=== PATIENT | female | born 1935 | race Caucasian/White ===

== ENCOUNTER 2017-10-16 17:00 | Inpatient (IN) ==
[2017-10-16] MEDS ORDERED: IOPAMIDOL 100 ML BOTTLE IV ONE (17:01)
[2017-10-16] MEDS ORDERED: 0.9 % SODIUM CHLORIDE 1,000 ML IV ONE (17:24)
[2017-10-16] MEDS ORDERED: FUROSEMIDE 40 MG/4 ML VIAL IV ONE (17:53)
[2017-10-16] MEDS ORDERED: METOPROLOL TARTRATE 25 MG TABLET PO ONE ×2 (17:58→18:58)
--- NOTE | 2017-10-16 18:07 | XRay Report ---
INDICATION: Dyspnea TECHNIQUE: PA and lateral upright chest x-ray COMPARISON: None FINDINGS:Bilateral pulmonary parenchymal infiltrates with bibasilar predominance. Appearance is consistent with congestive heart failure. There small pleural effusions. Clinical correlation and follow-up radiographs are recommended. Pneumonia is possible, especially at the left lung base. IMPRESSION: 1. Bilateral parenchymal infiltrates consistent with pulmonary edema. 2. Left basilar pneumonia is possible. Clinical correlation follow-up radiographs recommended. Interpreted and Authenticated by: Lester Tejada 10/16/17
[2017-10-16] MEDS ORDERED: IPRATROPIUM/ALBUTEROL 3 ML AMPUL.NEB NEB ONE (18:21)
[2017-10-16 18:23] LABS: Mean Cell Volume 83.5 fL (80.0-100.0); Mean Corpuscular HGB Conc 32.6 g/dL (31.0-36.0); Mean Corpuscular Hemoglobin 27.2 pg (26.0-34.0); Platelet Count 391 K/mcL (140-440); RBC 3.49 M/mcL (4.00-5.20); Red Cell Distribution Width 17.2 % (11.5-14.5)
[2017-10-16] MEDS: METOPROLOL TARTRATE 5 MG/5 ML VIAL IV ONE ×2 (18:29→18:30)
[2017-10-16] MEDS ORDERED: METOPROLOL TARTRATE 50 MG TABLET ONE (18:30)
[2017-10-16] MEDS ORDERED: ONDANSETRON 4 MG/2 ML VIAL IV ONE (18:40)
[2017-10-16 18:48] LABS: Anisocytosis 1+ (NONE SEEN); Lymphocytes % 2 % (15-49); Monocytes % (Manual) 7 % (1-12); Platelet Estimate NORMAL (NORMAL); RBC Morphology ABNORM (NORMAL); Segmented Neutrophils % 91 % (38-78)
[2017-10-16 18:55] LABS: ALT/SGPT 16 U/l (0-40); Albumin/Globulin Ratio 0.9 (1.0-2.3); Alkaline Phosphatase 89 U/L (39-117); Blood Urea Nitrogen 24 mg/dl (8-23)
--- NOTE | 2017-10-16 19:38 | Cat Scan Report ---
ORIGINAL REPORT CLINICAL INFORMATION: Congestive heart failure COMPARISON: Chest x-ray dated 10/16/2017 TECHNIQUE: Axial contrast enhanced images through the chest. Sagittally and coronally reformatted images. MIP reformatted images. 80 mL contrast material injected intravenously. FINDINGS: Bilateral pleural effusions. Lungs are abnormal with peribronchial thickening and an appearance consistent with pulmonary edema. No parenchymal consolidation. There are bilateral pleural effusions. Main pulmonary artery, right pulmonary artery, left pulmonary artery are negative. No pulmonary embolism. No lobar or segmental abnormalities. There is cardiomegaly with four-chamber cardiac enlargement. No pericardial effusion. Mild compression deformity of the T5 vertebral body. Other thoracic vertebral body heights are maintained. No hilar or mediastinal lymphadenopathy. There is mild calcification of the thoracic aorta. Upper abdomen is negative IMPRESSION: 1. Cardiomegaly 2. Bilateral pleural effusions. No pulmonary parenchymal consolidation. Findings are consistent with congestive heart failure. The exam was performed using radiation dose optimization techniques including, but not limited to, automated exposure control, adjustment of the mA and/or kV according to patient size and use of iterative reconstruction technique. ADDENDUM #1 ADDENDUM: There is extensive right axillary adenopathy. There is a 2.5 cm right breast mass. There is a large right axillary mass which measures at least 5 cm in diameter and is incompletely imaged. Interpreted and Authenticated by: Lester Tejada 10/16/17
--- NOTE | 2017-10-16 19:49 | Emergency Department Note ---
SOB HPI - General Chief Complaint: Shortness of Breath/Dyspnea Stated Complaint: Cough Time Seen by Provider: 10/16/17 17:18 Source: patient, family Mode of arrival: ambulatory Limitations: no limitations - History of Present Illness 82-year-old female with a slowly worsening history of cough and crackles and shortness of breath. Her heart rate has been increasing and she is feeling more weak and anxious with the dyspnea. Today the nursing staff at [facility] [place] noted her crackles and advised her to come into the hospital. She does have a history of atrial fibrillation and is on Eliquis. 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 She has a right breast mass that is fungating she has been bandaging because of its weeping. She has refused up to this point to allow doctors to work that up but the family suspects that his breast cancer-again refuses care for this here CODE STATUS is unclear but it does look like she is a full code but does want limited interventions; this will need to be sorted out - Related Data Allergies Allergy/AdvReac Type Severity Reaction Status Date / Time NKDA Allergy Unknown NONE Uncoded 03/01/15 03:52 Review of Systems All systems ED: reviewed and negative except as stated. Past Medical History - Past Medical History Attestation: Yes: The following information was validated with the patient. Medical history: Reports: atrial fibrillation, cancer (Breast mass undefined), DVT - Social History smoking status: Never smoker Physical Exam Some acute distress secondary to dyspnea. Frail appearing elderly female. Normocephalic atraumatic. Conjunctive are clear sclerae nonicteric. No nasal discharge or congestion. Oropharynx is pink and moist. Neck is supple without lymphadenopathy thyromegaly or carotid bruit. Heart is irregularly irregular rhythm difficult to distinguish murmur secondary to tachycardia. Lungs are with rales in all zuniga as well as end expiratory wheezes. She has an occasional nonproductive cough is tight bronchitic. Abdomen is soft nontender nondistended. She is wearing LEIF hose bilaterally for swelling and history of DVT. +2 radial pulse. Alert oriented able to answer questions appropriately. No dysarthria ataxia. Face is symmetrical Limitations: no limitations Course Vital Signs Temperature 98.2 F 10/16/17 17:00 Pulse Rate 146 H 10/16/17 17:00 Respiratory Rate 20 10/16/17 17:00 Blood Pressure 110/74 10/16/17 17:00 Pulse Oximetry (%) 92 10/16/17 17:00 Temperature 98.2 F 10/16/17 17:00 Pulse Rate 67 10/16/17 19:51 Respiratory Rate 27 H 10/16/17 19:51 Blood Pressure 116/84 10/16/17 19:01 Pulse Oximetry (%) 99 10/16/17 19:51 Shortness of Breath/Dyspnea - Lab Data Lab results reviewed: Yes I reviewed the patient's lab results. Result diagrams: 10/16/17 17:25 10/16/17 17:25 Lab Results 10/16/17 10/16/17 10/16/17 Range/Units 17:25 17:25 17:25 WBC 18.5 H (4.5-11.0) K/mcL RBC 3.49 L (4.00-5.20) M/mcL Hgb 9.5 L (12.0-15.0) g/dL Hct 29.2 L (36.0-48.0) % MCV 83.5 (80.0-100.0) fL MCH 27.2 (26.0-34.0) pg MCHC 32.6 (31.0-36.0) g/dL RDW 17.2 H (11.5-14.5) % Plt Count 391 (140-440) K/mcL MPV 7.8 (7.4-10.4) fL Total Counted 100 Seg Neutrophils % 91 H (38-78) % Band Neutrophils % Not Reportable Lymphocytes % 2 L (15-49) % Monocytes % (Manual) 7 (1-12) % Platelet Estimate Normal (NORMAL) RBC Morphology Abnorm A (NORMAL) Polychromasia Few A (NONE SEEN) Anisocytosis 1+ A (NONE SEEN) VBG Lactic Acid 2.2 (0.5-2.2) mmol/L Sodium 131 L (133-145) mmol/L Potassium 5.1 (3.3-5.1) mmol/L Chloride 94 L (96-108) mmol/L Carbon Dioxide 24 (22-30) mmol/L Anion Gap 13.0 (8-16) BUN 24 H (8-23) mg/dl Creatinine 1.2 H (0.6-1.1) mg/dl GFR Calculation 41 Glucose 135 H (70-105) mg/dL Calcium 8.8 (8.6-10.4) mg/dl Magnesium (1.6-2.5) mg/dL Total Bilirubin 0.2 (0.0-1.0) mg/dL AST 28 (0-37) U/l ALT 16 (0-40) U/l Alkaline Phosphatase 89 (39-117) U/L Troponin T (0-0.03) ng/ml NT-Pro-B Natriuret Pep (0-450) pg/ml Total Protein 6.3 (5.9-8.4) gm/dL Albumin 3.0 L (3.2-5.2) gm/dL Globulin 3.3 (2.2-3.7) gm/dL Albumin/Globulin Ratio 0.9 L (1.0-2.3) Lipase (7-60) U/L 10/16/17 10/16/17 Range/Units 17:25 17:25 WBC (4.5-11.0) K/mcL RBC (4.00-5.20) M/mcL Hgb (12.0-15.0) g/dL Hct (36.0-48.0) % MCV (80.0-100.0) fL MCH (26.0-34.0) pg MCHC (31.0-36.0) g/dL RDW (11.5-14.5) % Plt Count (140-440) K/mcL MPV (7.4-10.4) fL Total Counted Seg Neutrophils % (38-78) % Band Neutrophils % Lymphocytes % (15-49) % Monocytes % (Manual) (1-12) % Platelet Estimate (NORMAL) RBC Morphology (NORMAL) Polychromasia (NONE SEEN) Anisocytosis (NONE SEEN) VBG Lactic Acid (0.5-2.2) mmol/L Sodium (133-145) mmol/L Potassium (3.3-5.1) mmol/L Chloride (96-108) mmol/L Carbon Dioxide (22-30) mmol/L Anion Gap (8-16) BUN (8-23) mg/dl Creatinine (0.6-1.1) mg/dl GFR Calculation Glucose (70-105) mg/dL Calcium (8.6-10.4) mg/dl Magnesium 2.0 (1.6-2.5) mg/dL Total Bilirubin (0.0-1.0) mg/dL AST (0-37) U/l ALT (0-40) U/l Alkaline Phosphatase (39-117) U/L Troponin T < 0.01 (0-0.03) ng/ml NT-Pro-B Natriuret Pep 09175.0 H (0-450) pg/ml Total Protein (5.9-8.4) gm/dL Albumin (3.2-5.2) gm/dL Globulin (2.2-3.7) gm/dL Albumin/Globulin Ratio (1.0-2.3) Lipase 58 (7-60) U/L - Radiology Data Radiology results reviewed: Yes I reviewed the patient's radiology results. Chest x-ray shows pulmonary edema/effusions. Follow-up CT scan is done which shows significant bilateral effusions consistent with congestive heart failure additionally noted large right-sided breast masses which are incompletely imaged along with lymphadenopathy - EKG Data EKG attestation: Yes I reviewed and interpreted this EKG. EKG results narrative: EKG shows a rate of 138 with atrial flutter Disposition Pt seen by LENS MATCHER/PA only: No Clinical Impression: Atrial fibrillation with rapid ventricular response, Breast mass, right Congestive heart failure Qualifiers: Congestive heart failure type: unspecified Congestive heart failure chronicity : acute Qualified Code(s): I50.9 - Heart failure, unspecified Summary: Initially treated with metoprolol 5 mg IV with oral 25 mg at the same time. Also given some fluids but this was during workup. Once it was established that she was actually in heart failure with pleural effusion she was given some furosemide-she is making good urine. X-ray and CT scan of the chest showed significant effusions and so she will need further diuresis to help clear her lungs. She is given a nebulizer of DuoNeb which additionally helped. Her anxiety subsided somewhat Her heart rate came down into the 120s and so I gave her 1 more dose of metoprolol 25 mg oral. I did discuss her case with Dr. Ibarra the hospitalist who agreed to accept her for further care is inpatient for atrial fibrillation with rapid ventricular response. She has decided she wants to be DNR and she does not want a breast mass workup Disposition: Xfer As Inpt ([facility]) Condition: Serious
[2017-10-16] MEDS ORDERED: ONDANSETRON 4 MG/2 ML VIAL IV PRN (21:06)
[2017-10-16] MEDS ORDERED: NALOXONE HCL 0.4 MG/ML VIAL IV PRN (21:06)
[2017-10-16] MEDS ORDERED: METOPROLOL TARTRATE 5 MG/5 ML VIAL IV PRN (21:13)
--- NOTE | 2017-10-16 21:24 | Internal Med History&Physical ---
Medical - H&P: HPI Patient information: Note initiated : 10/16/17 at 9:18 pm Service Date, if different from initiated Date: [] Patient: Bob Acharya 82 y/o F admitted on 10/16/17 for Cough. Chief Complaint: [] History of present illness: Ms. Acharya is a 82 year old Female with h/o chf, dVt s/p IVC filter, presents to the ER today with complaints of sob x 1 day The patient is a resident of [facility], recently admitted there after being admitted to [facility] nearly a month ago for DVT, the patient has been short of breath and unable to do much since admission to the [place], the patient today was noted to be much more short of breath than usual, with crackles on exam, and therefore was sent to the ER for further evaluation The patient usually does not see physicians and does not take much medications, she was recently diagnosed with DVT and is not on anticoagulation? had IVC filter placed, the patient also has a right sided breast mass which has been increasing in size and she has willfully chosen to ignore it. She does not believe in medicine and seems to prefer holistic choices. The patient did not provide much history, most of the history was provided by the daughter who was at the bed side. The patient denies any other complaints. Initially she wished to be full code but later on understanding that she would likely end on a vent if resusitated she chose to be DNR, she does not wish any aggresive interventions, she has no interest in investigating the breast mass, and is aware that this could be cancerous. Apparently as per the daugther the patient was advised hospice care when she was at [facility], and she declined. All systems: reviewed and no additional remarkable complaints except as stated ( as per HPI restneg.) Review of systems: . Medical - H&P: PMH Medical history: Medical History Congestive heart failure (Acute) Atrial fibrillation with rapid ventricular response (Acute) Breast mass, right (Acute) dvt Surgical history: no major surgery s/p IVC filter Family history: reviewed and not pertinent Social history: lives in [facility], non smoker, no etoh, no recreational drugs believe in holistic medicine. Medical - H&P: Meds Allergies Allergy/AdvReac Type Severity Reaction Status Date / Time No Known Drug Allergies Allergy Unverified 10/16/17 21:23 Medical - H&P: Exam - Constitutional Vitals: Temp Pulse Resp BP Pulse Ox 98.2 F 144 H 28 H 116/84 99 10/16/17 17:00 10/16/17 20:33 10/16/17 20:33 10/16/17 19:01 10/16/17 20:33 Exam: GENERAL: The patient is a well-developed, well-nourished in no apparent distress. Is alert and oriented x3. VITAL SIGNS: Reviewed and as noted elsewhere. HEENT: Head is normocephalic and atraumatic. Extraocular muscles are intact. Pupils are equal, round, and reactive to light. Nares appeared normal. Mouth appears any without lesions. Mucous membranes are moist. NECK: Normal to inspection, Supple, No lymphadenopathy or thyromegaly. LUNGS: Air entry equal on both sides,yemi dimished up to mid lungs, yemi crackles noted, no wheezing on exam. not in resp distress, no accessory muscle use, speaking full sentences. HEART: Tachycardic rate and rhythm normal, S1 and S2 heard, no Gallop, S3 or Rub Noted, No Gross murmur heard. ABDOMEN: Soft, nontender, and nondistended. Positive bowel sounds. No hepatosplenomegaly was noted. EXTREMITIES: No cyanosis, clubbing, rash, lesions or edema. NEUROLOGIC: Cranial nerves II through XII are grossly intact. Motor and Sensory System Grossly Intact PSYCHIATRIC: Normal affect, Normal Mood. Appropriate Behavior. SKIN: No ulceration or wounds noted, No jaundice, No rash noted. Medical - H&P: Reslt - Labs CBC & Chem 7: 10/16/17 17:25 10/16/17 17:25 Labs: Short CBC 10/16/17 Range/Units 17:25 WBC 18.5 H (4.5-11.0) K/mcL Hgb 9.5 L (12.0-15.0) g/dL Hct 29.2 L (36.0-48.0) % Plt Count 391 (140-440) K/mcL BMP 10/16/17 17:25 Sodium 131 L Potassium 5.1 Chloride 94 L Carbon Dioxide 24 BUN 24 H Creatinine 1.2 H Glucose 135 H Calcium 8.8 Cardiac Enzymes 10/16/17 Range/Units 17:25 Troponin T < 0.01 (0-0.03) ng/ml Liver Function 10/16/17 Range/Units 17:25 Total Bilirubin 0.2 (0.0-1.0) mg/dL AST 28 (0-37) U/l ALT 16 (0-40) U/l Alkaline Phosphatase 89 (39-117) U/L Albumin 3.0 L (3.2-5.2) gm/dL Medical - H&P: A/P - Narrative A/P Narrative: A/P CHF exacerbation: CXR shows pulm edema with effusion. CT chest is neg for pna, place cooley, and use IV lasix, get echo, try to obtain records from recent discharge from [facility] Af with RVR: IV metoprolol prn for now, start on po metoprolol for rate control DVT : Not on anticoagulation? s/p IVC filter, get old records Breast mass: Pt absolutely not wanting to consider investigation, not even wanting to talk about this. mass was covered with bandage today, will reassess in AM CT shows mass with lymphadenopathy Leucocytosis: Etiolgy? reactive? Check ua and send for urine culture, possible infected breast mass? IV rocephin for now. DVT enoxaparin DNR Cardiac diet Overall poor prognosis, both daugthers at bedside are aware of same.
[2017-10-16 22:04] LABS: Appearance,Urine CLEAR; Bacteria,Urine 0 /hpf (0); Bilirubin,Urine NEG (NEG); Color,Urine YELLOW; Glucose,Urine (UA) NEGATIVE (NEG); Leukocyte Esterase,Urine NEG /uL (NEG); Mucus,Urine FEW /hpf (0); Protein,Urine NEG (NEG); Specific Gravity,Urine 1.011 (1.000-1.035); Urine Amorphous Crystals FEW /hpf (0); Urine Blood NEG mg/dL (<0.03); Urine Hyaline Cast 2 /lpf (0-2); Urine RBC < 1 /hpf (0-1); Urine Squamous Epithelial Cell < 1 /hpf (0-4); Urine WBC 0 /hpf (0-4); Urobilinogen,Urine NEG (NEG)
[2017-10-16] MEDS: cefTRIAXone 2 GM VIAL IV SCH (22:14)
[2017-10-16] MEDS: ENOXAPARIN 40 MG/0.4 ML SYRINGE SQ SCH (22:15)
[2017-10-16] MEDS: HYDROcodone/APAP 5/325MG TABLET PO PRN (23:39)
[2017-10-17] MEDS: IPRATROPIUM/ALBUTEROL 3 ML AMPUL.NEB NEB SCH ×4 (01:04→19:34)
[2017-10-17 04:57] LABS: Basophils # (Auto) 0 K/mcL (0.0-0.3); Basophils % (Auto) 0.1 % (0.0-2.0); Eosinophils # (Auto) 0 K/mcL (0.0-0.7); Eosinophils % (Auto) 0.1 % (0.0-7.0); Granulocytes % (Auto) 88.3 % (38.0-78.0); Lymphocytes # (Auto) 1.2 K/mcL (1.5-4.8); Lymphocytes % (Auto) 7.6 % (15.5-49.0); Mean Cell Volume 83.6 fL (80.0-100.0); Mean Corpuscular HGB Conc 31.7 g/dL (31.0-36.0); Mean Corpuscular Hemoglobin 26.5 pg (26.0-34.0); Monocytes # (Auto) 0.6 K/mcL (0.1-0.9); Monocytes % (Auto) 3.9 % (1.0-12.0); Platelet Count 395 K/mcL (140-440); RBC 3.57 M/mcL (4.00-5.20); Red Cell Distribution Width 16.8 % (11.5-14.5)
[2017-10-17 05:24] LABS: ALT/SGPT 57 U/l (0-40); Albumin 2.7 gm/dL (3.2-5.2); Albumin/Globulin Ratio 0.8 (1.0-2.3); Alkaline Phosphatase 166 U/L (39-117); Bilirubin,Direct < 0.2 mg/dL (0.0-0.3); Blood Urea Nitrogen 25 mg/dl (8-23); Gamma Glutamyl Transpeptidase 47 U/L (5-36); Uric Acid 8.5 mg/dL (2.5-8.0)
--- NOTE | 2017-10-17 12:25 | Internal Med Progress Note ---
Medical - PN: Subj Patient information: Note initiated : 10/17/17 at 12:22 pm Service Date, if different from initiated Date: [] Patient: Bob Acharya 82 y/o F admitted on 10/16/17 for Cough. Chief Complaint: [] Interval history: Ms. Acharya is a 82 year old Female with h/o chf, dVt s/p IVC filter, presents to the ER today with complaints of sob x 1 day The patient is a resident of [facility], recently admitted there after being admitted to [facility] nearly a month ago for DVT, the patient has been short of breath and unable to do much since admission to the [place], the patient today was noted to be much more short of breath than usual, with crackles on exam, and therefore was sent to the ER for further evaluation The patient usually does not see physicians and does not take much medications, she was recently diagnosed with DVT and is not on anticoagulation? had IVC filter placed, the patient also has a right sided breast mass which has been increasing in size and she has willfully chosen to ignore it. She does not believe in medicine and seems to prefer holistic choices. The patient did not provide much history, most of the history was provided by the daughter who was at the bed side. The patient denies any other complaints. Initially she wished to be full code but later on understanding that she would likely end on a vent if resusitated she chose to be DNR, she does not wish any aggresive interventions, she has no interest in investigating the breast mass, and is aware that this could be cancerous. Apparently as per the daugther the patient was advised hospice care when she was at [facility], and she declined. Oct 17 Patient seen examined, sitting by the bedside, noting she is not feeling well later noted she would like to be discharged her labs show persistent wbc, but downward trend clinically she feels better, swelling is down she is still not willing to discuss her care plan plan of care reviewed with family, noted that she has very poor prognosis, both daughters understand same. Pertinent ROS: Denies headache, dizziness Denies chest pain, palpitations Improving cough or shortness of breath Denies abdominal pain, nausea or vomiting. - Constitutional Vitals: Vital Signs Temp Pulse Resp BP Pulse Ox 98.2 F 95 H 20 118/74 98 10/16/17 21:00 10/17/17 07:59 10/17/17 07:59 10/17/17 00:01 10/17/17 07:59 Period Temp Pulse Resp BP Sys/Cohen Pulse Ox Last 24 Hr 98.2 F-98.2 F 62-146 15-38 92-180/44-110 86-99 Intake and Output 10/16/17 10/17/17 10/17/17 21:59 05:59 13:59 Intake Total 1000 / 1000 Output Total 1100 / 1100 Balance 1000 / 1000 -1100 / -1100 Weight 153 lb 11.2 oz Intake & Output: Intake & Output 10/16/17 10/17/17 10/17/17 21:59 05:59 13:59 Intake Total 1000 / 1000 Output Total 1100 / 1100 Balance 1000 / 1000 -1100 / -1100 Weight 153 lb 11.2 oz Intake: IV 1000 / 1000 Sodium Chloride 0.9% 1,000 ml @ 1000 / 1000 Wide Open IV BOLUS ONE Rx#: [id number] Output: Urine Catheter Amount 1100 / 1100 Void Amount 0 / 0 Exam: Constitutional; Afebrile, cooperative, alert, not in distress. Eyes- No icterus, , No periorbital swelling Ears- Ext ear normal, hearing normal to conversation. Neck- Midline trachea, supple Respiratory system: Air Entry equal on both sides, decreased breath sounds jasvir, jasvir basilar craeckles, improved air entry from yesterday. CVS- Rate rhythm irregular, S1,S2 heard, no gallop, no rub. Jasvir edema +++ Abdomen- Soft nontender abdomen, no organomegaly, no tenderness, no guarding or rigidity, NURSING ASS[facility]- AOOx3, moving all extremities, no gross focal deficit noted. right sided chest wound noted, reviewed ,picture on file. Medical - PN: Obj Da - Labs CBC & Chem 7: 10/17/17 04:09 10/17/17 04:09 Labs: Abnormal Lab Results 10/17/17 10/17/17 10/16/17 04:09 04:09 21:44 WBC 15.4 H RBC 3.57 L Hgb 9.5 L Hct 29.9 L RDW 16.8 H Gran % 88.3 H Lymph % (Auto) 7.6 L Gran # 13.6 H Lymph # (Auto) 1.2 L Seg Neutrophils % Lymphocytes % RBC Morphology Polychromasia Anisocytosis Sodium Chloride 94 L BUN 25 H Creatinine 1.3 H Glucose 146 H Uric Acid 8.5 H Phosphorus 5.4 H GGT 47 H AST 102 H ALT 57 H Alkaline Phosphatase 166 H Lactate Dehydrogenase 257 H NT-Pro-B Natriuret Pep Albumin 2.7 L Albumin/Globulin Ratio 0.8 L Amorphous Crystals Few A 10/16/17 10/16/17 10/16/17 17:25 17:25 17:25 WBC 18.5 H RBC 3.49 L Hgb 9.5 L Hct 29.2 L RDW 17.2 H Gran % Lymph % (Auto) Gran # Lymph # (Auto) Seg Neutrophils % 91 H Lymphocytes % 2 L RBC Morphology Abnorm A Polychromasia Few A Anisocytosis 1+ A Sodium 131 L Chloride 94 L BUN 24 H Creatinine 1.2 H Glucose 135 H Uric Acid Phosphorus GGT AST ALT Alkaline Phosphatase Lactate Dehydrogenase NT-Pro-B Natriuret Pep 83192.0 H Albumin 3.0 L Albumin/Globulin Ratio 0.9 L Amorphous Crystals Meds: Medications Acetaminophen (Tylenol) 650 mg PO Q6HP PRN PRN Reason: PAIN/FEVER > 101 Hydrocodone Bitart/Acetaminophen ([place] 5/325mg) 1 tab PO Q4HP PRN PRN Reason: PAIN LEVEL 3-6 Last Admin: 10/16/17 23:39 Dose: 1 tab Albuterol/Ipratropium (Duoneb) 3 ml NEB Q6HRT [facility] Last Admin: 10/17/17 07:53 Dose: 3 ml Ceftriaxone Sodium (Rocephin) 2 gm IV Q24H [facility] Last Admin: 10/16/17 22:14 Dose: 2 gm Enoxaparin Sodium (Lovenox) 40 mg SQ DAILY [facility] Last Admin: 10/16/17 22:15 Dose: 40 mg Furosemide (Lasix) 40 mg IV BIDD [facility] Metoprolol Tartrate (Lopressor) 5 mg IV Q4HP PRN PRN Reason: Tachyarrhythmias Last Admin: 10/17/17 00:10 Dose: 5 mg Naloxone HCl (Narcan) 0.1 mg IV Q2MIN PRN PRN Reason: Opiate Reversal Ondansetron HCl (Zofran) 4 mg IV Q4HP PRN PRN Reason: Nausea And Vomiting Medical - PN: A/P - Time Spent With Patient Total time spent is greater than 50% in coordination of care (as documented) at patient's floor/unit and/or counseling patient: - Narrative A/P Narrative: A/P CHF exacerbation: On IV lasix, bid, did not want cooley, clinically improving, echo pending abnl lft: Get liver usg today Afib with RVR: IV metoprolol prn for now, start on po metoprolol for rate control DVT : Not on anticoagulation? s/p IVC filter, get old records Breast mass: Pt absolutely not wanting to consider investigation, not even wanting to talk about this. did not wish to talk today too. Leucocytosis: Etiolgy? reactive? , possible infected breast mass? IV rocephin for now. DVT enoxaparin DNR Cardiac diet Overall poor prognosis, both daughters at bedside are aware of same. Medical - PN: Qual - VTE Deep Vein Thrombosis/Pulmonary Embolism Present on Admission: No
[2017-10-17] MEDS: ENOXAPARIN 40 MG/0.4 ML SYRINGE SQ SCH (13:41)
[2017-10-17] MEDS: FUROSEMIDE 40 MG/4 ML VIAL IV SCH ×2 (13:41→16:22)
[2017-10-17] MEDS: cefTRIAXone 2 GM VIAL IV SCH (13:42)
--- NOTE | 2017-10-17 15:12 | Ultrasound Report ---
CLINICAL INFORMATION: Abnormal liver function tests TECHNIQUE: Grayscale and color flow Doppler spectral imaging COMPARISON: CT scan chest dated 10/16/2017 FINDINGS: There are small mobile gallstones with acoustic shadowing. Stones measure 10 mm or less in size No gallbladder wall thickening. No pericholecystic fluid. No dilated bile ducts. Common bile duct measures 4 mm. No intrahepatic bile duct dilatation. Liver is negative. Normal homogeneous echotexture. No focal mass. Liver contour is smooth. No ascites. Portal vein is patent but suboptimally evaluated. The patient was unable to hold her breath Pancreas appears slightly echogenic. No detectable mass. There is a moderate right pleural effusion IMPRESSION: 1. Cholelithiasis 2. Right pleural effusion Interpreted and Authenticated by: Lester Tejada 10/17/17
[2017-10-17] MEDS: ACETAMINOPHEN 325 MG TABLET PO PRN (22:12)
[2017-10-17] MEDS: LORazepam 2 MG/ML VIAL IV PRN (22:13)
[2017-10-18] MEDS: IPRATROPIUM/ALBUTEROL 3 ML AMPUL.NEB NEB SCH ×4 (01:25→19:45)
[2017-10-18 05:59] LABS: Basophils # (Auto) 0.1 K/mcL (0.0-0.3); Basophils % (Auto) 0.4 % (0.0-2.0); Eosinophils # (Auto) 0.1 K/mcL (0.0-0.7); Eosinophils % (Auto) 0.6 % (0.0-7.0); Granulocytes % (Auto) 86.7 % (38.0-78.0); Lymphocytes # (Auto) 1.2 K/mcL (1.5-4.8); Lymphocytes % (Auto) 7.4 % (15.5-49.0); Mean Cell Volume 82.6 fL (80.0-100.0); Mean Corpuscular HGB Conc 32.3 g/dL (31.0-36.0); Mean Corpuscular Hemoglobin 26.7 pg (26.0-34.0); Monocytes # (Auto) 0.8 K/mcL (0.1-0.9); Monocytes % (Auto) 4.9 % (1.0-12.0); Platelet Count 345 K/mcL (140-440); RBC 3.47 M/mcL (4.00-5.20); Red Cell Distribution Width 16.8 % (11.5-14.5)
[2017-10-18 06:34] LABS: ALT/SGPT 44 U/l (0-40); Albumin 2.6 gm/dL (3.2-5.2); Albumin/Globulin Ratio 0.8 (1.0-2.3); Alkaline Phosphatase 128 U/L (39-117); Bilirubin,Direct < 0.2 mg/dL (0.0-0.3); Blood Urea Nitrogen 28 mg/dl (8-23); Gamma Glutamyl Transpeptidase 37 U/L (5-36); Uric Acid 9.8 mg/dL (2.5-8.0)
[2017-10-18] MEDS: HYDROcodone/APAP 5/325MG TABLET PO PRN (08:29)
[2017-10-18] MEDS: FUROSEMIDE 40 MG/4 ML VIAL IV SCH ×2 (12:31→16:08)
[2017-10-18] MEDS: APIXABAN 5 MG TABLET PO SCH ×2 (12:32→21:39)
[2017-10-18] MEDS: ENOXAPARIN 40 MG/0.4 ML SYRINGE SQ SCH (12:48)
--- NOTE | 2017-10-18 17:23 | Internal Med Progress Note ---
Medical - PN: Subj Patient information: Note initiated : 10/18/17 at 5:20 pm Service Date, if different from initiated Date: [] Patient: Bob Acharya 82 y/o F admitted on 10/16/17 for Cough/Afib with RVR. Chief Complaint: [] Interval history: Ms. Acharya is a 82 year old Female with h/o chf, dVt s/p IVC filter, presents to the ER today with complaints of sob x 1 day The patient is a resident of [facility], recently admitted there after being admitted to [facility] nearly a month ago for DVT, the patient has been short of breath and unable to do much since admission to the [place], the patient today was noted to be much more short of breath than usual, with crackles on exam, and therefore was sent to the ER for further evaluation The patient usually does not see physicians and does not take much medications, she was recently diagnosed with DVT and is not on anticoagulation? had IVC filter placed, the patient also has a right sided breast mass which has been increasing in size and she has willfully chosen to ignore it. She does not believe in medicine and seems to prefer holistic choices. The patient did not provide much history, most of the history was provided by the daughter who was at the bed side. The patient denies any other complaints. Initially she wished to be full code but later on understanding that she would likely end on a vent if resusitated she chose to be DNR, she does not wish any aggresive interventions, she has no interest in investigating the breast mass, and is aware that this could be cancerous. Apparently as per the daugther the patient was advised hospice care when she was at [facility], and she declined. Oct 17 Patient seen examined, sitting by the bedside, noting she is not feeling well later noted she would like to be discharged her labs show persistent wbc, but downward trend clinically she feels better, swelling is down she is still not willing to discuss her care plan plan of care reviewed with family, noted that she has very poor prognosis, both daughters understand same. Oct 18 Patient seen examined, no acute complaints, sitting in chair this AM reviewed the echo findings with her and her family, she has severe mitral MR, with severe pulm HTN, and would need valve replacement, (Dr Devine noted on his verbal report) patient is not planning on any further intervention, nor does she wish to talk about palliative care She is angry and upset on bring up topic of a breast biopsy the patient discharge summary from [facility] noted, she was seen by Dr Reyes and had declined breast biopsy there too and was offered hospice/ palliative care which she declined. She does not believe in modern medicine and does not trust the judgement of this provider. She wants to discuss this with her doctor, but she will not tell me who her doctor is, (so we could forward records there) Family educated regarding very poor prognosis in light of severe MR, pulm HTN and likely malignant breast Ca. Pertinent ROS: unable as pt does not wish to communicate. - Constitutional Vitals: Vital Signs Temp Pulse Resp BP Pulse Ox 98.6 F 95 H 16 111/66 100 10/18/17 16:24 10/18/17 07:33 10/18/17 16:24 10/18/17 16:26 10/18/17 16:24 Period Temp Pulse Resp BP Sys/Cohne Pulse Ox Last 24 Hr 97.9 F-98.6 F 75-95 16-25 82-161/40-73 90-100 Intake and Output 10/18/17 10/18/17 10/18/17 05:59 13:59 21:59 Intake Total 0 / 0 200 / 200 Output Total 0 / 0 350 / 350 700 / 700 Balance 0 / 0 -150 / -150 -700 / -700 Weight 149 lb 12 oz Patient Weight 10/19/17 05:59 Weight 149 lb 12 oz Intake & Output: Intake & Output 10/18/17 10/18/17 10/18/17 05:59 13:59 21:59 Intake Total 0 / 0 200 / 200 Output Total 0 / 0 350 / 350 700 / 700 Balance 0 / 0 -150 / -150 -700 / -700 Weight 149 lb 12 oz Intake: Oral 0 / 0 200 / 200 Output: Urine Catheter Amount 350 / 350 Void Amount 0 / 0 700 / 700 Exam: Constitutional; Afebrile, cooperative, alert, not in distress. Eyes- No icterus, , No periorbital swelling Ears- Ext ear normal, hearing normal to conversation. Neck- Midline trachea, supple Respiratory system: Air Entry equal on both sides, No crackles on ant exam. CVS- Rate rhythm irregular, S1,S2 heard, no gallop, no rub. [employer]- AOOx3, moving all extremities, no gross focal deficit noted. Medical - PN: Obj Da - Labs CBC & Chem 7: 10/18/17 04:04 10/18/17 04:04 Labs: Abnormal Lab Results 10/18/17 10/18/17 10/17/17 04:04 04:04 04:09 WBC 16.5 H RBC 3.47 L Hgb 9.3 L Hct 28.7 L RDW 16.8 H Gran % 86.7 H Lymph % (Auto) 7.4 L Gran # 14.3 H Lymph # (Auto) 1.2 L Seg Neutrophils % Lymphocytes % RBC Morphology Polychromasia Anisocytosis Sodium Chloride 93 L 94 L BUN 28 H 25 H Creatinine 1.4 H 1.3 H Glucose 146 H Uric Acid 9.8 H 8.5 H Calcium 8.5 L Phosphorus 5.4 H GGT 37 H 47 H AST 55 H 102 H ALT 44 H 57 H Alkaline Phosphatase 128 H 166 H Lactate Dehydrogenase 257 H NT-Pro-B Natriuret Pep Total Protein 5.8 L Albumin 2.6 L 2.7 L Albumin/Globulin Ratio 0.8 L 0.8 L Amorphous Crystals 10/17/17 10/16/17 10/16/17 04:09 21:44 17:25 WBC 15.4 H RBC 3.57 L Hgb 9.5 L Hct 29.9 L RDW 16.8 H Gran % 88.3 H Lymph % (Auto) 7.6 L Gran # 13.6 H Lymph # (Auto) 1.2 L Seg Neutrophils % Lymphocytes % RBC Morphology Polychromasia Anisocytosis Sodium Chloride BUN Creatinine Glucose Uric Acid Calcium Phosphorus GGT AST ALT Alkaline Phosphatase Lactate Dehydrogenase NT-Pro-B Natriuret Pep 72729.0 H Total Protein Albumin Albumin/Globulin Ratio Amorphous Crystals Few A 10/16/17 10/16/17 17:25 17:25 WBC 18.5 H RBC 3.49 L Hgb 9.5 L Hct 29.2 L RDW 17.2 H Gran % Lymph % (Auto) Gran # Lymph # (Auto) Seg Neutrophils % 91 H Lymphocytes % 2 L RBC Morphology Abnorm A Polychromasia Few A Anisocytosis 1+ A Sodium 131 L Chloride 94 L BUN 24 H Creatinine 1.2 H Glucose 135 H Uric Acid Calcium Phosphorus GGT AST ALT Alkaline Phosphatase Lactate Dehydrogenase NT-Pro-B Natriuret Pep Total Protein Albumin 3.0 L Albumin/Globulin Ratio 0.9 L Amorphous Crystals Meds: Medications Acetaminophen (Tylenol) 650 mg PO Q6HP PRN PRN Reason: PAIN/FEVER > 101 Last Admin: 10/17/17 22:12 Dose: 650 mg Hydrocodone Bitart/Acetaminophen ([place] 5/325mg) 1 tab PO Q4HP PRN PRN Reason: PAIN LEVEL 3-6 Last Admin: 10/18/17 08:29 Dose: 1 tab Albuterol/Ipratropium (Duoneb) 3 ml NEB Q6HRT [facility] Last Admin: 10/18/17 15:22 Dose: Not Given Furosemide (Lasix) 40 mg IV BIDD [facility] Last Admin: 10/18/17 16:08 Dose: 40 mg Lorazepam (Ativan) 0.5 mg IV Q2HP PRN PRN Reason: ANXIETY/SEDATION Last Admin: 10/17/17 22:13 Dose: 0.5 mg Metoprolol Tartrate (Lopressor) 5 mg IV Q4HP PRN PRN Reason: Tachyarrhythmias Last Admin: 10/17/17 00:10 Dose: 5 mg Naloxone HCl (Narcan) 0.1 mg IV Q2MIN PRN PRN Reason: Opiate Reversal Ondansetron HCl (Zofran) 4 mg IV Q4HP PRN PRN Reason: Nausea And Vomiting Medical - PN: A/P - Time Spent With Patient Total time spent is greater than 50% in coordination of care (as documented) at patient's floor/unit and/or counseling patient: - Narrative A/P Narrative: A/P CHF exacerbation/ SEvere MItral regurgitation/ PUlmonary Hypertension, severe: On oral lasix now, plan to d/c to sNF in AM, if remains sable abnl lft:stable usg, likely secondary to passive congestion. Afib with RVR: po metoprolol for now, doing well, IV prn. DVT : s/p IVC filter, on eliquis Breast mass: Pt absolutely not wanting to consider investigation, not even wanting to talk about this. did not wish to talk today too, got angry and upset if we bring up the topic. Leucocytosis: Etiolgy? reactive? , possible infected breast mass? off antibiocs , she had leucocytosis in [facility] too, no e/o infectino found DVT enoxaparin DNR Cardiac diet Overall poor prognosis, both daughters at bedside are aware of same. Medical - PN: Qual - VTE Deep Vein Thrombosis/Pulmonary Embolism Present on Admission: No
[2017-10-18] MEDS: ACETAMINOPHEN 325 MG TABLET PO PRN (19:54)
[2017-10-19] MEDS: LORazepam 2 MG/ML VIAL IV PRN (00:10)
[2017-10-19] MEDS: IPRATROPIUM/ALBUTEROL 3 ML AMPUL.NEB NEB SCH ×5 (02:00→23:58)
[2017-10-19] MEDS: HYDROcodone/APAP 5/325MG TABLET PO PRN (02:00)
[2017-10-19 05:22] LABS: Basophils # (Auto) 0 K/mcL (0.0-0.3); Basophils % (Auto) 0 % (0.0-2.0); Eosinophils # (Auto) 0.1 K/mcL (0.0-0.7); Eosinophils % (Auto) 0.4 % (0.0-7.0); Granulocytes % (Auto) 86.6 % (38.0-78.0); Lymphocytes # (Auto) 1.2 K/mcL (1.5-4.8); Lymphocytes % (Auto) 7.5 % (15.5-49.0); Mean Cell Volume 83.3 fL (80.0-100.0); Mean Corpuscular HGB Conc 32.2 g/dL (31.0-36.0); Mean Corpuscular Hemoglobin 26.8 pg (26.0-34.0); Monocytes # (Auto) 0.9 K/mcL (0.1-0.9); Monocytes % (Auto) 5.5 % (1.0-12.0); Platelet Count 341 K/mcL (140-440); RBC 3.12 M/mcL (4.00-5.20); Red Cell Distribution Width 17.1 % (11.5-14.5)
[2017-10-19 05:46] LABS: ALT/SGPT 34 U/l (0-40); Albumin 2.5 gm/dL (3.2-5.2); Albumin/Globulin Ratio 0.8 (1.0-2.3); Alkaline Phosphatase 120 U/L (39-117); Bilirubin,Direct < 0.2 mg/dL (0.0-0.3); Blood Urea Nitrogen 27 mg/dl (8-23); Gamma Glutamyl Transpeptidase 34 U/L (5-36); Uric Acid 10.6 mg/dL (2.5-8.0)
[2017-10-19] MEDS: METOPROLOL TARTRATE 25 MG TABLET PO SCH ×2 (09:26→20:52)
[2017-10-19] MEDS: FUROSEMIDE 20 MG TABLET PO SCH ×2 (09:26→17:22)
[2017-10-19] MEDS: APIXABAN 5 MG TABLET PO SCH ×2 (09:26→20:52)
--- NOTE | 2017-10-19 15:20 | Internal Med Progress Note ---
Medical - PN: Subj Patient information: Note initiated : 10/19/17 at 3:19 pm Service Date, if different from initiated Date: [] Patient: Bob Acharya 82 y/o F admitted on 10/16/17 for Cough/Afib with RVR. Chief Complaint: [] Interval history: Ms. Acharya is a 82 year old Female with h/o chf, dVt s/p IVC filter, presents to the ER today with complaints of sob x 1 day The patient is a resident of [facility], recently admitted there after being admitted to [facility] nearly a month ago for DVT, the patient has been short of breath and unable to do much since admission to the [place], the patient today was noted to be much more short of breath than usual, with crackles on exam, and therefore was sent to the ER for further evaluation The patient usually does not see physicians and does not take much medications, she was recently diagnosed with DVT and is not on anticoagulation? had IVC filter placed, the patient also has a right sided breast mass which has been increasing in size and she has willfully chosen to ignore it. She does not believe in medicine and seems to prefer holistic choices. The patient did not provide much history, most of the history was provided by the daughter who was at the bed side. The patient denies any other complaints. Initially she wished to be full code but later on understanding that she would likely end on a vent if resusitated she chose to be DNR, she does not wish any aggresive interventions, she has no interest in investigating the breast mass, and is aware that this could be cancerous. Apparently as per the daugther the patient was advised hospice care when she was at [facility], and she declined. Oct 17 Patient seen examined, sitting by the bedside, noting she is not feeling well later noted she would like to be discharged her labs show persistent wbc, but downward trend clinically she feels better, swelling is down she is still not willing to discuss her care plan plan of care reviewed with family, noted that she has very poor prognosis, both daughters understand same. Oct 18 Patient seen examined, no acute complaints, sitting in chair this AM reviewed the echo findings with her and her family, she has severe mitral MR, with severe pulm HTN, and would need valve replacement, (Dr Devine noted on his verbal report) patient is not planning on any further intervention, nor does she wish to talk about palliative care She is angry and upset on bring up topic of a breast biopsy the patient discharge summary from [facility] noted, she was seen by Dr Reyes and had declined breast biopsy there too and was offered hospice/ palliative care which she declined. She does not believe in modern medicine and does not trust the judgement of this provider. She wants to discuss this with her doctor, but she will not tell me who her doctor is, (so we could forward records there) Family educated regarding very poor prognosis in light of severe MR, pulm HTN and likely malignant breast Ca. Oct 19 patient seen examined, more willing to talk today, denies any complaints wanted to hear out whats wrong with her and what her options are after a prolonged discussion she has agreed for a breast biopsy, which will be done today, and follow up arranged with oncology, likely also cardiology she will be started on metoprolol 12.5mg bid, continue on lasix 20mg bid educated at length today the need to atleast know and talk with [place] [facility] before making any final decsions, pt willing to think over it. Pertinent ROS: Denies headache, dizziness Denies chest pain, palpitations Denies cough or shortness of breath Denies abdominal pain, nausea or vomiting. - Constitutional Vitals: Vital Signs Temp Pulse Resp BP Pulse Ox 99.5 F H 92 H 20 109/53 100 10/19/17 12:01 10/19/17 13:53 10/19/17 13:53 10/19/17 12:01 10/19/17 12:01 Period Temp Pulse Resp BP Sys/Cohen Pulse Ox Last 24 Hr 97.2 F-99.5 F 91-102 16-22 103-128/53-76 87-100 Intake and Output 10/19/17 10/19/17 10/19/17 05:59 13:59 21:59 Intake Total 0 / 0 240 / 240 Output Total 420 / 420 Balance -420 / -420 240 / 240 Intake & Output: Intake & Output 10/19/17 10/19/17 10/19/17 05:59 13:59 21:59 Intake Total 0 / 0 240 / 240 Output Total 420 / 420 Balance -420 / -420 240 / 240 Intake: Oral 0 / 0 240 / 240 Output: Void Amount 420 / 420 Other: Meal Nourishment/Supplement Breakfast Percent of Meal Consumed 100% 25% Feeding Ability Independent Assist with Tray Set Up # Voids 1 Exam: Constitutional; Afebrile, cooperative, alert, not in distress. Eyes- No icterus, , No periorbital swelling Ears- Ext ear normal, hearing normal to conversation. Neck- Midline trachea, supple Respiratory system: Air Entry equal on both sides, improving basilar crackles CVS- Rate rhythm irregular, S1,S2 heard, no gallop, no rub. Abdomen- Soft nontender abdomen, no organomegaly, no tenderness, no guarding or rigidity, LOOM CHECKER- AOOx3, moving all extremities, no gross focal deficit noted. Medical - PN: Obj Da - Labs CBC & Chem 7: 10/19/17 08:25 10/19/17 03:48 Labs: Abnormal Lab Results 10/19/17 10/19/17 10/19/17 14:15 08:25 03:48 WBC RBC Hgb 9.0 L Hct 27.8 L RDW Gran % Lymph % (Auto) Gran # Lymph # (Auto) Seg Neutrophils % Lymphocytes % RBC Morphology Polychromasia Anisocytosis POC PT 19.4 H POC INR 1.7 H Sodium Chloride 92 L Carbon Dioxide 31 H BUN 27 H Creatinine 1.2 H Glucose Uric Acid 10.6 H Calcium 8.3 L Phosphorus GGT AST ALT Alkaline Phosphatase 120 H Lactate Dehydrogenase NT-Pro-B Natriuret Pep Total Protein 5.5 L Albumin 2.5 L Albumin/Globulin Ratio 0.8 L Amorphous Crystals 10/19/17 10/18/17 10/18/17 03:48 04:04 04:04 WBC 16.1 H 16.5 H RBC 3.12 L 3.47 L Hgb 8.4 L 9.3 L Hct 26.0 L 28.7 L RDW 17.1 H 16.8 H Gran % 86.6 H 86.7 H Lymph % (Auto) 7.5 L 7.4 L Gran # 13.9 H 14.3 H Lymph # (Auto) 1.2 L 1.2 L Seg Neutrophils % Lymphocytes % RBC Morphology Polychromasia Anisocytosis POC PT POC INR Sodium Chloride 93 L Carbon Dioxide BUN 28 H Creatinine 1.4 H Glucose Uric Acid 9.8 H Calcium 8.5 L Phosphorus GGT 37 H AST 55 H ALT 44 H Alkaline Phosphatase 128 H Lactate Dehydrogenase NT-Pro-B Natriuret Pep Total Protein 5.8 L Albumin 2.6 L Albumin/Globulin Ratio 0.8 L Amorphous Crystals 10/17/17 10/17/17 10/16/17 04:09 04:09 21:44 WBC 15.4 H RBC 3.57 L Hgb 9.5 L Hct 29.9 L RDW 16.8 H Gran % 88.3 H Lymph % (Auto) 7.6 L Gran # 13.6 H Lymph # (Auto) 1.2 L Seg Neutrophils % Lymphocytes % RBC Morphology Polychromasia Anisocytosis POC PT POC INR Sodium Chloride 94 L Carbon Dioxide BUN 25 H Creatinine 1.3 H Glucose 146 H Uric Acid 8.5 H Calcium Phosphorus 5.4 H GGT 47 H AST 102 H ALT 57 H Alkaline Phosphatase 166 H Lactate Dehydrogenase 257 H NT-Pro-B Natriuret Pep Total Protein Albumin 2.7 L Albumin/Globulin Ratio 0.8 L Amorphous Crystals Few A 10/16/17 10/16/17 10/16/17 17:25 17:25 17:25 WBC 18.5 H RBC 3.49 L Hgb 9.5 L Hct 29.2 L RDW 17.2 H Gran % Lymph % (Auto) Gran # Lymph # (Auto) Seg Neutrophils % 91 H Lymphocytes % 2 L RBC Morphology Abnorm A Polychromasia Few A Anisocytosis 1+ A POC PT POC INR Sodium 131 L Chloride 94 L Carbon Dioxide BUN 24 H Creatinine 1.2 H Glucose 135 H Uric Acid Calcium Phosphorus GGT AST ALT Alkaline Phosphatase Lactate Dehydrogenase NT-Pro-B Natriuret Pep 61545.0 H Total Protein Albumin 3.0 L Albumin/Globulin Ratio 0.9 L Amorphous Crystals Meds: Medications Acetaminophen (Tylenol) 650 mg PO Q6HP PRN PRN Reason: PAIN/FEVER > 101 Last Admin: 10/18/17 19:54 Dose: 650 mg Hydrocodone Bitart/Acetaminophen ([place] 5/325mg) 1 tab PO Q4HP PRN PRN Reason: PAIN LEVEL 3-6 Last Admin: 10/19/17 02:00 Dose: 1 tab Albuterol/Ipratropium (Duoneb) 3 ml NEB Q6HRT [facility] Last Admin: 10/19/17 13:51 Dose: 3 ml Furosemide (Lasix) 20 mg PO BIDD [facility] Last Admin: 10/19/17 09:26 Dose: 20 mg Lorazepam (Ativan) 0.5 mg IV Q2HP PRN PRN Reason: ANXIETY/SEDATION Last Admin: 10/19/17 00:10 Dose: 0.5 mg Metoprolol Tartrate (Lopressor) 5 mg IV Q4HP PRN PRN Reason: Tachyarrhythmias Last Admin: 10/17/17 00:10 Dose: 5 mg Metoprolol Tartrate (Lopressor) 12.5 mg PO BID [facility] Last Admin: 10/19/17 09:26 Dose: 12.5 mg Naloxone HCl (Narcan) 0.1 mg IV Q2MIN PRN PRN Reason: Opiate Reversal Ondansetron HCl (Zofran) 4 mg IV Q4HP PRN PRN Reason: Nausea And Vomiting Medical - PN: A/P - Time Spent With Patient Total time spent is greater than 50% in coordination of care (as documented) at patient's floor/unit and/or counseling patient: - Narrative A/P Narrative: A/P CHF exacerbation/ SEvere MItral regurgitation/ PUlmonary Hypertension, severe: On oral lasix now, plan to d/c to sNF in AM, if remains sable , d/c plan on hold due to breast biopsy. abnl lft:stable usg, likely secondary to passive congestion. Afib with RVR: po metoprolol for now, doing well, IV prn. HR stable. DVT : s/p IVC filter, on eliquis Breast mass: she has agreed for breast biopsy, and thats the reason for her staying another day. as we cannot discharge patient to SNF later in the day. Leucocytosis: Etiolgy? reactive? , possible infected breast mass? off antibiocs , she had leucocytosis in [facility] too, no e/o infectino found she has intermittent low grade temp. DVT enoxaparin DNR Cardiac diet Overall poor prognosis, both daughters at bedside are aware of same. Medical - PN: Qual - VTE Deep Vein Thrombosis/Pulmonary Embolism Present on Admission: No
[2017-10-19] MEDS ORDERED: FUROSEMIDE 20 MG TABLET PO SCH (17:21)
--- NOTE | 2017-10-19 17:27 | Ultrasound Report ---
ORIGINAL REPORT Ultrasound-guided breast biopsy Clinical history: Large mass in the lateral right breast Technique: The procedure and risks including possibly of bleeding, infection and inadequate tissue sampling were explained to the patient. She understood and wished to proceed. The lesion was first sap bpc developer localized. The skin overlying the lesion was marked, prepped and locally anesthetized with 1% lidocaine using a 25-gauge needle. A 14-gauge Achieve core biopsy needle was used to obtain three passes under sonographic guidance. The tissue samples were sent in formalin to pathology and the needle was washed in normal sterile saline between each pass. A microclip was deployed to milo the biopsy site. Post procedure scanning shows no hemorrhage or other complication. Patient tolerated procedure well. IMPRESSION: Percutaneous core biopsy of large mass dominating the lateral aspect of the right breast. Pathology pending. 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 At this point, consider biopsy of one of the large axillary region lesions Interpreted and Authenticated by: Lester Tsang 10/24/17
[2017-10-20 05:54] LABS: Basophils # (Auto) 0 K/mcL (0.0-0.3); Basophils % (Auto) 0.1 % (0.0-2.0); Eosinophils # (Auto) 0 K/mcL (0.0-0.7); Eosinophils % (Auto) 0.1 % (0.0-7.0); Granulocytes % (Auto) 90.6 % (38.0-78.0); Lymphocytes # (Auto) 1.5 K/mcL (1.5-4.8); Lymphocytes % (Auto) 5.2 % (15.5-49.0); Mean Cell Volume 83.7 fL (80.0-100.0); Mean Corpuscular HGB Conc 31.9 g/dL (31.0-36.0); Mean Corpuscular Hemoglobin 26.7 pg (26.0-34.0); Monocytes # (Auto) 1.1 K/mcL (0.1-0.9); Platelet Count 343 K/mcL (140-440); RBC 3.09 M/mcL (4.00-5.20); Red Cell Distribution Width 16.9 % (11.5-14.5)
[2017-10-20 06:02] LABS: ALT/SGPT 26 U/l (0-40); Albumin 2.4 gm/dL (3.2-5.2); Albumin/Globulin Ratio 0.8 (1.0-2.3); Alkaline Phosphatase 108 U/L (39-117); Bilirubin,Direct < 0.2 mg/dL (0.0-0.3); Blood Urea Nitrogen 26 mg/dl (8-23); Gamma Glutamyl Transpeptidase 29 U/L (5-36); Uric Acid 10.7 mg/dL (2.5-8.0)
[2017-10-20] MEDS: IPRATROPIUM/ALBUTEROL 3 ML AMPUL.NEB NEB SCH ×3 (06:55→19:27)
[2017-10-20] MEDS ORDERED: LEVOFLOXACIN 750 MG/150 ML BAG IV ONE (08:04)
[2017-10-20] MEDS: ACETAMINOPHEN 325 MG TABLET PO PRN (08:43)
[2017-10-20] MEDS: METOPROLOL TARTRATE 25 MG TABLET PO SCH ×2 (08:43→21:11)
[2017-10-20] MEDS: FUROSEMIDE 20 MG TABLET PO SCH ×2 (08:43→16:52)
[2017-10-20] MEDS: APIXABAN 5 MG TABLET PO SCH (09:33)
--- NOTE | 2017-10-20 09:33 | XRay Report ---
CLINICAL INFORMATION: Follow pneumonia COMPARISON: 10/16/2017 FINDINGS: Moderate cardiomegaly is unchanged. Mediastinum is unremarkable. Pulmonary vessels are normal on today's study. Small left pleural effusion has decreased slightly. Small left basilar infiltrate has improved. Right lung infiltrate has resolved IMPRESSION: Interval resolution in right lung infiltrate. Improvement in left basilar infiltrate and effusion which are now small. Interpreted and Authenticated by: Lester Tsang 10/20/17
[2017-10-20] MEDS ORDERED: VANCOMYCIN PER PHARMACY IV SCH (09:44)
[2017-10-20] MEDS ORDERED: VANCOMYCIN 1,000 MG in 0.9 % SODIUM CHLORIDE 250 ML IV SCH (10:00)
[2017-10-20] MEDS: PIPERACILLIN SODIUM/TAZOBACTAM 3.375 GM in DEXTROSE 5% IN WATER 50 ML IV SCH ×2 (10:38→14:19)
[2017-10-20] MEDS ORDERED: INSULIN LISPRO 1 UNIT/0.01 ML UNIT SQ SCH (11:30)
--- NOTE | 2017-10-20 14:28 | Internal Med Progress Note ---
Medical - PN: Subj Patient information: Note initiated : 10/20/17 at 2:26 pm Service Date, if different from initiated Date: [] Patient: Bob Acharya 82 y/o F admitted on 10/16/17 for Cough/Afib with RVR. Chief Complaint: [] Interval history: Ms. Acharya is a 82 year old Female with h/o chf, dVt s/p IVC filter, presents to the ER today with complaints of sob x 1 day The patient is a resident of [facility], recently admitted there after being admitted to [facility] nearly a month ago for DVT, the patient has been short of breath and unable to do much since admission to the [place], the patient today was noted to be much more short of breath than usual, with crackles on exam, and therefore was sent to the ER for further evaluation The patient usually does not see physicians and does not take much medications, she was recently diagnosed with DVT and is not on anticoagulation? had IVC filter placed, the patient also has a right sided breast mass which has been increasing in size and she has willfully chosen to ignore it. She does not believe in medicine and seems to prefer holistic choices. The patient did not provide much history, most of the history was provided by the daughter who was at the bed side. The patient denies any other complaints. Initially she wished to be full code but later on understanding that she would likely end on a vent if resusitated she chose to be DNR, she does not wish any aggresive interventions, she has no interest in investigating the breast mass, and is aware that this could be cancerous. Apparently as per the daugther the patient was advised hospice care when she was at [facility], and she declined. Oct 17 Patient seen examined, sitting by the bedside, noting she is not feeling well later noted she would like to be discharged her labs show persistent wbc, but downward trend clinically she feels better, swelling is down she is still not willing to discuss her care plan plan of care reviewed with family, noted that she has very poor prognosis, both daughters understand same. Oct 18 Patient seen examined, no acute complaints, sitting in chair this AM reviewed the echo findings with her and her family, she has severe mitral MR, with severe pulm HTN, and would need valve replacement, (Dr Devine noted on his verbal report) patient is not planning on any further intervention, nor does she wish to talk about palliative care She is angry and upset on bring up topic of a breast biopsy the patient discharge summary from [facility] noted, she was seen by Dr Reyes and had declined breast biopsy there too and was offered hospice/ palliative care which she declined. She does not believe in modern medicine and does not trust the judgement of this provider. She wants to discuss this with her doctor, but she will not tell me who her doctor is, (so we could forward records there) Family educated regarding very poor prognosis in light of severe MR, pulm HTN and likely malignant breast Ca. Oct 19 patient seen examined, more willing to talk today, denies any complaints wanted to hear out whats wrong with her and what her options are after a prolonged discussion she has agreed for a breast biopsy, which will be done today, and follow up arranged with oncology, likely also cardiology she will be started on metoprolol 12.5mg bid, continue on lasix 20mg bid educated at length today the need to atleast know and talk with [place] cardiology before making any final decisions, pt willing to think over it. Oct 20 patient seen examined, was sleepy this AM did not want to talk much The patient has elevated wbc today, also noted that she is feeling much weak today, Her X ray shows improving infiltrates/ chf today, her urine was clean the likely source of the infection is the breast mass, the patient on the USG has loculation/ necrotic mass in the breast which is likely infected. She has had 2 rounds of antibiotics before coming to this hospital, and now again has a recurrent infection. I reviewed the case with Dr Ray, who noted that this is not a surgical case, patient does not wish any other intervention, Reviewed issue with the patients daughter, as patient is not willing to talk much now. Antibiotic course right now will just prolong the patients suffering, without treatment of the malignancy and other issues, patient will likely not survive. They understand same and want time to discuss this with the patient. They agree that patient needs to be comfort care, but not to stop all the treatment at once. Plan to stop eliquis now as there is some bleeding in the malignancy, and pt already has IVC filter, stop antibiotics. continue lasix and beta blockers and pain meds for now Review with case management the optimal disposition, home hospice, vs snf palliative care vs palliative c are here under swing bed status. Pertinent ROS: unable to get much info patient does not feel good. Additional PMFSH (Level 3 Only): Medical History Congestive heart failure (Acute) Atrial fibrillation with rapid ventricular response (Acute) Breast mass, right (Acute) - Constitutional Vitals: Vital Signs Temp Pulse Resp BP Pulse Ox 97.8 F 85 18 112/65 93 10/20/17 11:43 10/20/17 13:22 10/20/17 13:22 10/20/17 11:43 10/20/17 11:43 Period Temp Pulse Resp BP Sys/Cohen Pulse Ox Last 24 Hr 97.8 F-100.7 F 82-110 14-20 105-117/47-67 93-99 Intake and Output 10/20/17 10/20/17 10/20/17 05:59 13:59 21:59 Intake Total 120 / 120 530 / 530 Output Total 350 / 350 275 / 275 Balance -230 / -230 255 / 255 Intake & Output: Intake & Output 10/20/17 10/20/17 10/20/17 05:59 13:59 21:59 Intake Total 120 / 120 530 / 530 Output Total 350 / 350 275 / 275 Balance -230 / -230 255 / 255 Intake: IV 50 / 50 Zosyn 3.375 gm In Dextrose 5% 50 / 50 in Water 50 ml @ 100 mls/hr IV Q6H ON LICENSE OF [facility] Rx#:[id number] Oral 120 / 120 480 / 480 Output: Void Amount 350 / 350 275 / 275 Other: Meal Breakfast Percent of Meal Consumed 100% # Bowel Movements 0 Exam: Constitutional; Afebrile, cooperative, alert, not in distress. Eyes- No icterus, , No periorbital swelling Ears- Ext ear normal, hearing normal to conversation. Neck- Midline trachea, supple Respiratory system: not in resp distress. RIght axillar: large fungating mass with purulent discharge, bleeding from biopsy site. [employer] CODER- AOOx3, moving all extremities, no gross focal deficit noted. Medical - PN: Obj Da - Labs CBC & Chem 7: 10/20/17 04:07 10/20/17 04:07 Labs: Abnormal Lab Results 10/20/17 10/20/17 10/19/17 04:07 04:07 14:15 WBC 28.1 H RBC 3.09 L Hgb 8.3 L Hct 25.8 L RDW 16.9 H Gran % 90.6 H Lymph % (Auto) 5.2 L Gran # 25.5 H Lymph # (Auto) [place] # (Auto) 1.1 H POC PT 19.4 H POC INR 1.7 H Chloride 93 L Carbon Dioxide 34 H BUN 26 H Creatinine Uric Acid 10.7 H Calcium 8.4 L Phosphorus 2.3 L GGT AST ALT Alkaline Phosphatase Total Protein 5.5 L Albumin 2.4 L Albumin/Globulin Ratio 0.8 L 10/19/17 10/19/17 10/19/17 08:25 03:48 03:48 WBC 16.1 H RBC 3.12 L Hgb 9.0 L 8.4 L Hct 27.8 L 26.0 L RDW 17.1 H Gran % 86.6 H Lymph % (Auto) 7.5 L Gran # 13.9 H Lymph # (Auto) 1.2 L [place] # (Auto) POC PT POC INR Chloride 92 L Carbon Dioxide 31 H BUN 27 H Creatinine 1.2 H Uric Acid 10.6 H Calcium 8.3 L Phosphorus GGT AST ALT Alkaline Phosphatase 120 H Total Protein 5.5 L Albumin 2.5 L Albumin/Globulin Ratio 0.8 L 10/18/17 10/18/17 04:04 04:04 WBC 16.5 H RBC 3.47 L Hgb 9.3 L Hct 28.7 L RDW 16.8 H Gran % 86.7 H Lymph % (Auto) 7.4 L Gran # 14.3 H Lymph # (Auto) 1.2 L [place] # (Auto) POC PT POC INR Chloride 93 L Carbon Dioxide BUN 28 H Creatinine 1.4 H Uric Acid 9.8 H Calcium 8.5 L Phosphorus GGT 37 H AST 55 H ALT 44 H Alkaline Phosphatase 128 H Total Protein 5.8 L Albumin 2.6 L Albumin/Globulin Ratio 0.8 L Meds: Medications Acetaminophen (Tylenol) 650 mg PO Q6HP PRN PRN Reason: PAIN/FEVER > 101 Last Admin: 10/20/17 08:43 Dose: 650 mg Hydrocodone Bitart/Acetaminophen ([place] 5/325mg) 1 tab PO Q4HP PRN PRN Reason: PAIN LEVEL 3-6 Last Admin: 10/19/17 02:00 Dose: 1 tab Albuterol/Ipratropium (Duoneb) 3 ml NEB Q6HRT AMISHA Last Admin: 10/20/17 13:21 Dose: 3 ml Furosemide (Lasix) 20 mg PO BIDD ON LICENSE OF [facility] Last Admin: 10/20/17 08:43 Dose: 20 mg Lorazepam (Ativan) 0.5 mg IV Q2HP PRN PRN Reason: ANXIETY/SEDATION Last Admin: 10/19/17 00:10 Dose: 0.5 mg Metoprolol Tartrate (Lopressor) 5 mg IV Q4HP PRN PRN Reason: Tachyarrhythmias Last Admin: 10/17/17 00:10 Dose: 5 mg Metoprolol Tartrate (Lopressor) 12.5 mg PO BID ON LICENSE OF [facility] Last Admin: 10/20/17 08:43 Dose: 12.5 mg Naloxone HCl (Narcan) 0.1 mg IV Q2MIN PRN PRN Reason: Opiate Reversal Ondansetron HCl (Zofran) 4 mg IV Q4HP PRN PRN Reason: Nausea And Vomiting Medical - PN: A/P - Time Spent With Patient Total time spent is greater than 50% in coordination of care (as documented) at patient's floor/unit and/or counseling patient: - Narrative A/P Narrative: A/P CHF exacerbation/ Severe MItral regurgitation/ Pulmonary Hypertension, severe: oral lasix bid, metoprolol 12.5mg bid stable Sepsis: due to infected breast mass, likely breast malignancy, one dose of antibiotics given, but given plan is for palliative care, will d/c same. abnl lft:stable usg, likely secondary to passive congestion. Afib with RVR: po metoprolol for now, doing well, IV prn. HR stable. DVT : s/p IVC filter, d/c eliquis now given palliative care status, Breast mass: she has agreed for breast biopsy, infected breast lesion, DVT has DVT extensive, has an IVC filter in place. DNR Cardiac diet Overall poor prognosis, both daughters at bedside are aware of same. spent > 60 mins reviewing case, coordinating care. counselling family Medical - PN: Qual - VTE Deep Vein Thrombosis/Pulmonary Embolism Present on Admission: No
[2017-10-20] MEDS: HYDROcodone/APAP 5/325MG TABLET PO PRN (21:12)
[2017-10-20] MEDS: LORazepam 2 MG/ML VIAL IV PRN (23:55)
[2017-10-21] MEDS: IPRATROPIUM/ALBUTEROL 3 ML AMPUL.NEB NEB SCH ×4 (02:10→19:33)
[2017-10-21 05:44] LABS: Basophils # (Auto) 0 K/mcL (0.0-0.3); Basophils % (Auto) 0 % (0.0-2.0); Eosinophils # (Auto) 0.2 K/mcL (0.0-0.7); Eosinophils % (Auto) 0.8 % (0.0-7.0); Granulocytes % (Auto) 89.6 % (38.0-78.0); Lymphocytes % (Auto) 6.9 % (15.5-49.0); Mean Cell Volume 84.1 fL (80.0-100.0); Mean Corpuscular HGB Conc 32.5 g/dL (31.0-36.0); Mean Corpuscular Hemoglobin 27.3 pg (26.0-34.0); Monocytes # (Auto) 0.8 K/mcL (0.1-0.9); Monocytes % (Auto) 2.7 % (1.0-12.0); Platelet Count 327 K/mcL (140-440); RBC 3.06 M/mcL (4.00-5.20)
[2017-10-21 06:24] LABS: ALT/SGPT 22 U/l (0-40); Albumin 2.5 gm/dL (3.2-5.2); Albumin/Globulin Ratio 0.9 (1.0-2.3); Alkaline Phosphatase 110 U/L (39-117); Bilirubin,Direct < 0.2 mg/dL (0.0-0.3); Blood Urea Nitrogen 27 mg/dl (8-23); Gamma Glutamyl Transpeptidase 27 U/L (5-36); Uric Acid 9.6 mg/dL (2.5-8.0)
[2017-10-21] MEDS: FUROSEMIDE 20 MG TABLET PO SCH ×2 (08:35→16:32)
[2017-10-21] MEDS: METOPROLOL TARTRATE 25 MG TABLET PO SCH ×2 (08:35→21:50)
[2017-10-21] MEDS ORDERED: VANCOMYCIN PER PHARMACY IV SCH (11:15)
--- NOTE | 2017-10-21 11:33 | Internal Med Progress Note ---
Medical - PN: Subj Patient information: Note initiated : 10/21/17 at 11:13 am Service Date, if different from initiated Date: [] Patient: Bob Acharya 82 y/o F admitted on 10/16/17 for Cough/Afib with RVR. Chief Complaint: [] Interval history: Ms. Acharya is a 82 year old Female with h/o chf, dVt s/p IVC filter, presents to the ER today with complaints of sob x 1 day The patient is a resident of [facility], recently admitted there after being admitted to [facility] nearly a month ago for DVT, the patient has been short of breath and unable to do much since admission to the [place], the patient today was noted to be much more short of breath than usual, with crackles on exam, and therefore was sent to the ER for further evaluation The patient usually does not see physicians and does not take much medications, she was recently diagnosed with DVT and is not on anticoagulation? had IVC filter placed, the patient also has a right sided breast mass which has been increasing in size and she has willfully chosen to ignore it. She does not believe in medicine and seems to prefer holistic choices. The patient did not provide much history, most of the history was provided by the daughter who was at the bed side. The patient denies any other complaints. Initially she wished to be full code but later on understanding that she would likely end on a vent if resusitated she chose to be DNR, she does not wish any aggresive interventions, she has no interest in investigating the breast mass, and is aware that this could be cancerous. Apparently as per the daugther the patient was advised hospice care when she was at [facility], and she declined. Oct 17 Patient seen examined, sitting by the bedside, noting she is not feeling well later noted she would like to be discharged her labs show persistent wbc, but downward trend clinically she feels better, swelling is down she is still not willing to discuss her care plan plan of care reviewed with family, noted that she has very poor prognosis, both daughters understand same. Oct 18 Patient seen examined, no acute complaints, sitting in chair this AM reviewed the echo findings with her and her family, she has severe mitral MR, with severe pulm HTN, and would need valve replacement, (Dr Devine noted on his verbal report) patient is not planning on any further intervention, nor does she wish to talk about palliative care She is angry and upset on bring up topic of a breast biopsy the patient discharge summary from [facility] noted, she was seen by Dr Reyes and had declined breast biopsy there too and was offered hospice/ palliative care which she declined. She does not believe in modern medicine and does not trust the judgement of this provider. She wants to discuss this with her doctor, but she will not tell me who her doctor is, (so we could forward records there) Family educated regarding very poor prognosis in light of severe MR, pulm HTN and likely malignant breast Ca. Oct 19 patient seen examined, more willing to talk today, denies any complaints wanted to hear out whats wrong with her and what her options are after a prolonged discussion she has agreed for a breast biopsy, which will be done today, and follow up arranged with oncology, likely also cardiology she will be started on metoprolol 12.5mg bid, continue on lasix 20mg bid educated at length today the need to atleast know and talk with [place] cardiology before making any final decisions, pt willing to think over it. Oct 20 patient seen examined, was sleepy this AM did not want to talk much The patient has elevated wbc today, also noted that she is feeling much weak today, Her X ray shows improving infiltrates/ chf today, her urine was clean the likely source of the infection is the breast mass, the patient on the USG has loculation/ necrotic mass in the breast which is likely infected. She has had 2 rounds of antibiotics before coming to this hospital, and now again has a recurrent infection. I reviewed the case with Dr Ray, who noted that this is not a surgical case, patient does not wish any other intervention, Reviewed issue with the patients daughter, as patient is not willing to talk much now. Antibiotic course right now will just prolong the patients suffering, without treatment of the malignancy and other issues, patient will likely not survive. They understand same and want time to discuss this with the patient. They agree that patient needs to be comfort care, but not to stop all the treatment at once. Plan to stop eliquis now as there is some bleeding in the malignancy, and pt already has IVC filter, stop antibiotics. continue lasix and beta blockers and pain meds for now Review with case management the optimal disposition, home hospice, vs snf palliative care vs palliative c are here under swing bed status. October 21- patient seen in room along with daughter. No overnight events. Patient alert oriented. Discussed clinical findings including worsening white count and underlying necrotic breast mass likely malignancy. Patient was unclear about a decision at this timeand she wanted to know the available options.. She wasn't aware that antibiotics were discontinued yesterday at the request of the family. I was able to find out from the daughter that they did not inform patient about family's decision to stop antibiotic. I subsequently discussed in depth with patient the options available and she would want to take some time before she makes a final decision. at this time treatment option would include either palliative route in light of likely malignant breast mass and poor surgical candidacy versus waiting for biopsy results and subsequent oncology follow-up for treatment valuation while continuing antibiotic coverage for the necrotic breast mass abscess. her white count is persistently elevated at 28,000. a total of 75 minutes spent on discussions, reviewing labs and imaging - Constitutional Vitals: Vital Signs Temp Pulse Resp BP Pulse Ox 99.4 F H 91 H 16 115/41 94 10/21/17 08:00 10/21/17 08:00 10/21/17 08:00 10/21/17 08:00 10/21/17 08:00 Period Temp Pulse Resp BP Sys/Cohen Pulse Ox Last 24 Hr 97.0 F-99.4 F 82-94 16-20 97-115/41-65 93-99 Intake and Output 10/20/17 10/21/17 10/21/17 21:59 05:59 13:59 Intake Total 200 / 200 180 / 180 Output Total 200 / 200 451 / 451 Balance 0 / 0 180 / 180 -451 / -451 Weight 149 lb Intake & Output: Intake & Output 10/20/17 10/21/17 10/21/17 21:59 05:59 13:59 Intake Total 200 / 200 180 / 180 Output Total 200 / 200 451 / 451 Balance 0 / 0 180 / 180 -451 / -451 Weight 149 lb Intake: Oral 200 / 200 180 / 180 Output: Void Amount 200 / 200 450 / 450 # of times incontinent of urine Other: # Voids 1 General appearance: average body habitus Exam: fatigued and lethargic Anxious Nonlabored breathing Minimal pallor Medical - PN: Obj Da - Labs CBC & Chem 7: 10/21/17 04:06 10/21/17 04:06 Labs: Abnormal Lab Results 10/21/17 10/21/17 10/20/17 04:06 04:06 04:07 WBC 28.4 H RBC 3.06 L Hgb 8.4 L Hct 25.8 L RDW 17.0 H Gran % 89.6 H Lymph % (Auto) 6.9 L Gran # 25.4 H Lymph # (Auto) [place] # (Auto) POC PT POC INR Chloride 93 L 93 L Carbon Dioxide 31 H 34 H BUN 27 H 26 H Creatinine 1.3 H Uric Acid 9.6 H 10.7 H Calcium 8.4 L Phosphorus 2.3 L Alkaline Phosphatase Total Protein 5.4 L 5.5 L Albumin 2.5 L 2.4 L Albumin/Globulin Ratio 0.9 L 0.8 L 10/20/17 10/19/17 10/19/17 04:07 14:15 08:25 WBC 28.1 H RBC 3.09 L Hgb 8.3 L 9.0 L Hct 25.8 L 27.8 L RDW 16.9 H Gran % 90.6 H Lymph % (Auto) 5.2 L Gran # 25.5 H Lymph # (Auto) [place] # (Auto) 1.1 H POC PT 19.4 H POC INR 1.7 H Chloride Carbon Dioxide BUN Creatinine Uric Acid Calcium Phosphorus Alkaline Phosphatase Total Protein Albumin Albumin/Globulin Ratio 10/19/17 10/19/17 03:48 03:48 WBC 16.1 H RBC 3.12 L Hgb 8.4 L Hct 26.0 L RDW 17.1 H Gran % 86.6 H Lymph % (Auto) 7.5 L Gran # 13.9 H Lymph # (Auto) 1.2 L [place] # (Auto) POC PT POC INR Chloride 92 L Carbon Dioxide 31 H BUN 27 H Creatinine 1.2 H Uric Acid 10.6 H Calcium 8.3 L Phosphorus Alkaline Phosphatase 120 H Total Protein 5.5 L Albumin 2.5 L Albumin/Globulin Ratio 0.8 L Meds: Medications Acetaminophen (Tylenol) 650 mg PO Q6HP PRN PRN Reason: PAIN/FEVER > 101 Last Admin: 10/20/17 08:43 Dose: 650 mg Hydrocodone Bitart/Acetaminophen ([place] 5/325mg) 1 tab PO Q4HP PRN PRN Reason: PAIN LEVEL 3-6 Last Admin: 10/20/17 21:12 Dose: 1 tab Albuterol/Ipratropium (Duoneb) 3 ml NEB Q6HRT [facility] Last Admin: 10/21/17 07:44 Dose: 3 ml Furosemide (Lasix) 20 mg PO BIDD [facility] Last Admin: 10/21/17 08:35 Dose: 20 mg Lorazepam (Ativan) 0.5 mg IV Q2HP PRN PRN Reason: ANXIETY/SEDATION Last Admin: 10/20/17 23:55 Dose: 0.5 mg Metoprolol Tartrate (Lopressor) 5 mg IV Q4HP PRN PRN Reason: Tachyarrhythmias Last Admin: 10/17/17 00:10 Dose: 5 mg Metoprolol Tartrate (Lopressor) 12.5 mg PO BID [facility] Last Admin: 10/21/17 08:35 Dose: 12.5 mg Naloxone HCl (Narcan) 0.1 mg IV Q2MIN PRN PRN Reason: Opiate Reversal Ondansetron HCl (Zofran) 4 mg IV Q4HP PRN PRN Reason: Nausea And Vomiting Medical - PN: A/P - Time Spent With Patient Total time spent is greater than 50% in coordination of care (as documented) at patient's floor/unit and/or counseling patient: Greater than 35 minutes - Narrative A/P Narrative: A/P * sepsis by criteria-secondary to necrotic breast mass. Start Zosyn/vancomycin as patient wants full intervention * Necrotic breast mass-evaluated by surgery. Nonsurgical at this time. Patient wants full intervention including oncology follow-up. Biopsy done. Patient will follow with oncology as outpatient once biopsy results available * CHF exacerbation/ Severe MItral regurgitation/ Pulmonary Hypertension, severe : continue lasix bid, metoprolol 12.5mg bid stable * abnormal lft:cholelithiasis without cholecystitis. no evidence of common bile duct occlusion * Afib with RVR: po metoprolol for now, doing well, IV prn. HR stable. * DVT : s/p IVC filter, Eliquis on hold due to local bleeding * Patient wants aggressive interventions and does not want to pursue palliation at this time. Family aware of patient's decision plan * restart antibiotic coverage * awaiting breast biopsy * pre-existing medical condition management as above total time spent in excess of 75 minutes conducting prolonged family conference, reviewing charts labs and imaging Medical - PN: Qual - VTE Deep Vein Thrombosis/Pulmonary Embolism Present on Admission: No
[2017-10-21] MEDS: PIPERACILLIN SODIUM/TAZOBACTAM 2.25 GM in DEXTROSE 5% IN WATER 50 ML IV SCH ×3 (11:43→23:21)
[2017-10-21] MEDS: VANCOMYCIN 1,000 MG in 0.9 % SODIUM CHLORIDE 250 ML IV SCH (12:53)
[2017-10-21] MEDS ORDERED: MELATONIN 5 MG TAB PO SCH (21:00)
[2017-10-21] MEDS: COENZYME Q10 PO SCH (21:51)
[2017-10-21] MEDS: [UNRECOGNIZED DRUG - OTHER] PO SCH (21:52)
[2017-10-21] MEDS: [UNRECOGNIZED DRUG - OTHER] PO SCH (21:52)
[2017-10-21] MEDS: [UNRECOGNIZED DRUG - OTHER] PO SCH (21:52)
[2017-10-22] MEDS: IPRATROPIUM/ALBUTEROL 3 ML AMPUL.NEB NEB SCH ×2 (02:07→07:18)
[2017-10-22 05:44] LABS: Basophils # (Auto) 0 K/mcL (0.0-0.3); Basophils % (Auto) 0.1 % (0.0-2.0); Eosinophils # (Auto) 0.4 K/mcL (0.0-0.7); Eosinophils % (Auto) 2.2 % (0.0-7.0); Granulocytes % (Auto) 82.9 % (38.0-78.0); Lymphocytes # (Auto) 1.5 K/mcL (1.5-4.8); Lymphocytes % (Auto) 8.9 % (15.5-49.0); Mean Cell Volume 83.6 fL (80.0-100.0); Mean Corpuscular HGB Conc 32.2 g/dL (31.0-36.0); Mean Corpuscular Hemoglobin 26.9 pg (26.0-34.0); Monocytes % (Auto) 5.9 % (1.0-12.0); Platelet Count 325 K/mcL (140-440); RBC 3.05 M/mcL (4.00-5.20); Red Cell Distribution Width 17.5 % (11.5-14.5)
[2017-10-22] MEDS: PIPERACILLIN SODIUM/TAZOBACTAM 2.25 GM in DEXTROSE 5% IN WATER 50 ML IV SCH (05:49)
[2017-10-22 06:13] LABS: ALT/SGPT 18 U/l (0-40); Albumin 2.4 gm/dL (3.2-5.2); Albumin/Globulin Ratio 0.8 (1.0-2.3); Alkaline Phosphatase 138 U/L (39-117); Bilirubin,Direct < 0.2 mg/dL (0.0-0.3); Blood Urea Nitrogen 29 mg/dl (8-23); Gamma Glutamyl Transpeptidase 24 U/L (5-36)
[2017-10-22] MEDS ORDERED: [UNRECOGNIZED DRUG - OTHER] PO SCH (09:00)
[2017-10-22] MEDS ORDERED: [UNRECOGNIZED DRUG - OTHER] PO SCH (09:00)
--- NOTE | 2017-10-22 09:04 | Surgical Pathology Report ---
HISTOLOGY SPECIMEN MICROSCOPIC DIAGNOSIS BREAST, RIGHT MASS, BIOPSY: -- BLAND EPITHELIAL AND STROMAL PROLIFERATION WITH ASSOCIATED CALCIFICATIONS, SEE COMMENT. -- BENIGN SKIN AND SUBCUTANEOUS SOFT TISSUE WITH HEMOSIDERIN DEPOSITION, CHOLESTEROL CLEFTS, FOAMY MACROPHAGES, AND FIBRINOUS DEBRIS. -- NO EVIDENCE OF ATYPIA OR MALIGNANCY IDENTIFIED. (:[email or web address]) COMMENT: Sections demonstrate needle core biopsies of breast parenchyma showing proliferation of glands within a background of sclerotic stroma. Immunohistochemical stains confirm myoepithelium lining all glandular elements, and no occult infiltrative process is identified. 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 Clinical and radiographic correlation with appropriate follow-up is recommended. If the pathologic findings do not correlate with the clinical/radiographic impression, repeat biopsy or excision should be considered as clinically indicated. MICROSCOPIC DESCRIPTION For diagnostic purposes, immunohistochemical studies are performed to further evaluate the epithelial and stromal proliferation. All controls react appropriately. Pancytokeratin plus: Appropriately highlights epithelium; negative for occult infiltrative process. CD68: Highlights histiocytes. CD34: Highlights endothelium. SM-MHC, p63: Highlights myoepithelial cell layer around all epithelial elements. Some of the tests reported here may not have been cleared or approved by the U.S. Food and Drug Administration (FDA). However, the FDA has determined that such clearance or approval is not necessary. Pursuant to the requirements of CLIA, this laboratory has established and verified the accuracy and precision of all tests, and additional information about these tests is available upon request. All technical controls are adequate. CLINICAL HISTORY Right breast mass. GROSS DESCRIPTION Received in formalin labeled right breast, are six pate-brown cores of tissue from 0.3 to 1.0 cm length and up to 0.2 cm in diameter. They are entirely submitted - one cassette. (KANB:[email or web address]) Electronically Signed by: Olivia Chong D.O.
--- NOTE | 2017-10-22 09:36 | Discharge Summary ---
Medical - DS: Prov Patient information: Note initiated : 10/22/17 at 9:30 am Service Date, if different from initiated Date: [] Patient: Bob Acharya 82 y/o F admitted on 10/16/17 for Cough/Afib with RVR. Chief Complaint: [] Date of admission: 10/16/17 21:00 Discharge date: 10/22/17 Consults: 10/16/17 Consult to Physician [CONS] Stat Comment: Consulting Provider: Debby Iabrra Reason For Exam: Physician to Consult Medical - DS: Meds - Discharge Medications Prescriptions: Amoxicillin/Potassium Clav [Augmentin] 875 mg PO Q12H #10 tab Active and Home Medications: Home Medications Amoxicillin/Potassium Clav [Augmentin] 875 mg PO Q12H #10 tab 10/22/17 [Rx Last Taken Unknown] Medical - DS: Hosp Hospital course: DISCHARGE DIAGNOSIS * breast abscess-extensive drainage overnight with improved leukocytosis from28, 000-16.8. Discharging to SNF with continued oral antibiotics for additional 5 days of Augmentin and follow-up with surgery as outpatient * Necrotic breast mass -evaluated by surgery. Nonsurgical as per surgery. status post biopsy and await results. Patient wants full intervention including oncology follow-up. scheduled follow with oncology as outpatient in 1 week on discharge * Sepsis by criteria-clinically resolved. secondary to breast abscess. transition to oral Augmentin * CHF exacerbation/ Severe MItral regurgitation/ Pulmonary Hypertension, severe per echo report: continue lasix bid, metoprolol 12.5mg bid stable * abnormal lft:cholelithiasis without cholecystitis. no evidence of common bile duct occlusion * Afib with RVR: po metoprolol for now, doing well, IV prn. HR stable. * DVT : s/p IVC filter, Eliquis can be restarted at SNF if no further local bleeding * full code BRIEF HOSPITAL COURSE Ms. Acharya is a 82 year old Female with h/o chf, dVt s/p IVC filter, presents to the ER today with complaints of sob x 1 day The patient is a resident of [facility], recently admitted there after being admitted to [facility] nearly a month ago for DVT, the patient has been short of breath and unable to do much since admission to the [place], the patient today was noted to be much more short of breath than usual, with crackles on exam, and therefore was sent to the ER for further evaluation The patient usually does not see physicians and does not take much medications, she was recently diagnosed with DVT and is not on anticoagulation? had IVC filter placed, the patient also has a right sided breast mass which has been increasing in size and she has willfully chosen to ignore it. She does not believe in medicine and seems to prefer holistic choices. The patient did not provide much history, most of the history was provided by the daughter who was at the bed side. The patient denies any other complaints. Initially she wished to be full code but later on understanding that she would likely end on a vent if resusitated she chose to be DNR, she does not wish any aggresive interventions, she has no interest in investigating the breast mass, and is aware that this could be cancerous. Apparently as per the daugther the patient was advised hospice care when she was at [facility], and she declined. Oct 17 Patient seen examined, sitting by the bedside, noting she is not feeling well later noted she would like to be discharged her labs show persistent wbc, but downward trend clinically she feels better, swelling is down she is still not willing to discuss her care plan plan of care reviewed with family, noted that she has very poor prognosis, both daughters understand same. Oct 18 Patient seen examined, no acute complaints, sitting in chair this AM reviewed the echo findings with her and her family, she has severe mitral MR, with severe pulm HTN, and would need valve replacement, (Dr Devine noted on his verbal report) patient is not planning on any further intervention, nor does she wish to talk about palliative care She is angry and upset on bring up topic of a breast biopsy the patient discharge summary from [facility] noted, she was seen by Dr Reyes and had declined breast biopsy there too and was offered hospice/ palliative care which she declined. She does not believe in modern medicine and does not trust the judgement of this provider. She wants to discuss this with her doctor, but she will not tell me who her doctor is, (so we could forward records there) Family educated regarding very poor prognosis in light of severe MR, pulm HTN and likely malignant breast Ca. Oct 19 patient seen examined, more willing to talk today, denies any complaints wanted to hear out whats wrong with her and what her options are after a prolonged discussion she has agreed for a breast biopsy, which will be done today, and follow up arranged with oncology, likely also cardiology she will be started on metoprolol 12.5mg bid, continue on lasix 20mg bid educated at length today the need to atleast know and talk with [facility] cardiology before making any final decisions, pt willing to think over it. Oct 20 patient seen examined, was sleepy this AM did not want to talk much The patient has elevated wbc today, also noted that she is feeling much weak today, Her X ray shows improving infiltrates/ chf today, her urine was clean the likely source of the infection is the breast mass, the patient on the USG has loculation/ necrotic mass in the breast which is likely infected. She has had 2 rounds of antibiotics before coming to this hospital, and now again has a recurrent infection. I reviewed the case with Dr Ray, who noted that this is not a surgical case, patient does not wish any other intervention, Reviewed issue with the patients daughter, as patient is not willing to talk much now. Antibiotic course right now will just prolong the patients suffering, without treatment of the malignancy and other issues, patient will likely not survive. They understand same and want time to discuss this with the patient. They agree that patient needs to be comfort care, but not to stop all the treatment at once. Plan to stop eliquis now as there is some bleeding in the malignancy, and pt already has IVC filter, stop antibiotics. continue lasix and beta blockers and pain meds for now Review with case management the optimal disposition, home hospice, vs snf palliative care vs palliative c are here under swing bed status. October 21- patient seen in room along with daughter. No overnight events. Patient alert oriented. Discussed clinical findings including worsening white count and underlying necrotic breast mass likely malignancy. Patient was unclear about a decision at this timeand she wanted to know the available options.. She wasn't aware that antibiotics were discontinued yesterday at the request of the family. I was able to find out from the daughter that they did not inform patient about family's decision to stop antibiotic. I subsequently discussed in depth with patient the options available and she would want to take some time before she makes a final decision. at this time treatment option would include either palliative route in light of likely malignant breast mass and poor surgical candidacy versus waiting for biopsy results and subsequent oncology follow-up for treatment valuation while continuing antibiotic coverage for the necrotic breast mass abscess. her white count is persistently elevated at 28,000. 10/22-patient doing well. Copious amount of purulent discharge noted from breastabscess area. White count down from 29,000->16. Afebrile. Sepsis resolved. De-escalate antibiotics to oral Augmentin to be continued for additional 5 days with SNF. Follow up scheduled with oncology at [place] in 1 week. Biopsy results pending. overall very poor prognosis in light of suspected malignant breast mass. discharge to SNF with detailed instructions as below Discharge diagnosis: . - Time Spent with Patient Total time spent providing and/or coordinating discharge services: Greater than 30 minutes Medical - DS: Exam - Constitutional Vitals: Vital Signs Temp Pulse Pulse Resp BP Pulse Ox 10/22/17 07:38 98.9 F 28 H 128/75 98 10/22/17 04:00 97.9 F 84 18 116/70 97 10/22/17 00:00 97.8 F 93 H 18 134/80 100 10/21/17 20:00 97.6 F 101 H 18 109/56 96 10/21/17 16:00 98.8 F 87 18 105/44 98 10/21/17 13:16 90 18 10/21/17 12:00 98.7 F 86 20 117/49 99 Intake and Output 10/21/17 10/22/17 10/22/17 21:59 05:59 13:59 Intake Total 1340 / 1340 150 / 150 300 / 300 Output Total 550 / 550 151 / 151 Balance 790 / 790 -1 / -1 300 / 300 Intake: IV 300 / 300 50 / 50 Zosyn 2.25 gm In Dextrose 5% in 50 / 50 50 / 50 Water 50 ml @ 100 mls/hr IV Q6H AMISHA Rx#:[id number] Vancomycin 1,000 mg In Sodium 250 / 250 Chloride 0.9% 250 ml @ 250 mls/ hr IV Q24H AMISHA Rx#:[id number] Oral 1040 / 1040 100 / 100 300 / 300 Output: Void Amount 550 / 550 150 / 150 # of times incontinent of urine Other: Meal Lunch Breakfast Percent of Meal Consumed 50% 50% Feeding Ability Independent # Voids 1 # Bowel Movements 1 Weight 142 lb 8 oz Medical - DS: Data Labs on day of discharge: Labs from last 24 hours 10/22/17 10/22/17 04:20 04:20 WBC 16.8 H RBC 3.05 L Hgb 8.2 L Hct 25.5 L MCV 83.6 MCH 26.9 MCHC 32.2 RDW 17.5 H Plt Count 325 MPV 7.8 Gran % 82.9 H Lymph % (Auto) 8.9 L Morrison % (Auto) 5.9 Eos % (Auto) 2.2 Baso % (Auto) 0.1 Gran # 13.9 H Lymph # (Auto) 1.5 Morrison # (Auto) 1.0 H Eos # (Auto) 0.4 Baso # (Auto) 0 Sodium 136 Potassium 4.5 Chloride 95 L Carbon Dioxide 30 Anion Gap 11.0 BUN 29 H Creatinine 1.3 H GFR Calculation 38 Glucose 90 Uric Acid 9.0 H Calcium 8.8 Phosphorus 3.8 Magnesium 1.8 Total Bilirubin 0.3 Direct Bilirubin < 0.2 GGT 24 AST 21 ALT 18 Alkaline Phosphatase 138 H Lactate Dehydrogenase 220 Total Protein 5.4 L Albumin 2.4 L Globulin 3.0 Albumin/Globulin Ratio 0.8 L Triglycerides 61 Medical - DS: A/P - Patient/Caregiver Discharge Instructions Activity: as per physical therapy, increase activity as tolerated Diet: Regular Diet Additional Instructions: Follow-up PCP in 5 days F/u oncology as advised with biopsy results next week restart anticoagulation at SNF as per discretion of SNF physician if no further local bleed I recommend SNF physician to check CBC BMP as a posthospital follow-up Antibiotics for additional 5 days oral Augmentin Continue aggressive bowel regimen to prevent constipation Continue fall precautions Continue aggressive PT OT evaluation and treatment at [facility]. ST eval and treatment if indicated All meals on chair sitting upright at 90 degrees to prevent aspiration Return to ER if worsening fever chills shortness of breath, diarrhea, bleeding Review risk and side effect profile of medications including antibiotics. Side effect may include mild to severe reaction including rash, diarrhea, cdiff and even which can be prevented by close follow-up with PCP and monitoring for side effects Continue diet and activity as advised Discussed importance of medication adherence Please review medication list with patient prior to discharge Please schedule follow-up with PCP/Providers prior to discharge and provide printouts Portions of this chart may have been created with [employer] voice recognition software. Occasional wrong-word or ?sound-like? substitutions may have occurred due to the inherent limitations of voice recognition software. Please read the chart carefully and recognize, using context, where the substitutions have occurred. CC- PCP Prescriptions: Amoxicillin/Potassium Clav [Augmentin] 875 mg PO Q12H #10 tab - Follow up Plan Disposition: Xfer SNF Prognosis: Serious Rehab Potential: Undetermined I certify that the patient requires SNF services: Yes Overall status at discharge: patient is progressing back to baseline Medical - DS: Qual - VTE Deep Vein Thrombosis/Pulmonary Embolism Present on Admission: No
[2017-10-22] MEDS: METOPROLOL TARTRATE 25 MG TABLET PO SCH (09:48)
[2017-10-22] MEDS: FUROSEMIDE 20 MG TABLET PO SCH (09:48)
[2017-10-22] MEDS: COENZYME Q10 PO SCH (09:51)
[2017-10-22] MEDS: [UNRECOGNIZED DRUG - OTHER] PO SCH (09:52)
[2017-10-22] MEDS: [UNRECOGNIZED DRUG - OTHER] PO SCH (09:52)
[2017-10-22] MEDS: [UNRECOGNIZED DRUG - OTHER] PO SCH (09:52)
[2017-10-22] MEDS ORDERED: DOCUSATE SODIUM 100 MG CAPSULE PO PRN (09:56)
[2017-10-22] MEDS: VANCOMYCIN 1,000 MG in 0.9 % SODIUM CHLORIDE 250 ML IV SCH (10:28)
== END 2017-10-22 11:00 | DRG 872 ==
LOC: ED 17:00 → ICU 21:00
PROVIDERS: ADMIT Internal Medicine; ATTEND Internal Medicine